=== PATIENT | male | born 1980 | race Hispanic/Latino ===

== ENCOUNTER 2018-06-14 11:49 | Emergency (ER) | payer BC, OTHER ==
[2018-06-14 14:06] LABS: Absolute Lymphocytes (CBC) 1.8 K/uL (0.7-4.9); Absolute Monocytes 1.1 K/uL (0.1-1.3); Absolute Neutrophil 7.4 K/uL (1.8-8.0); Basophils % 0.7 % (0-1.3); Eosinophils % 5.5 % (0-4.4); Hematocrit 47.2 % (39.6-49.0); Lymphocytes % 16.5 % (15.3-44.8); MCH 33.3 pg (27.0-35.0); MCV 96.9 fL (80-100); MPV 7.5 fL (7.6-11.3); Monocytes % 9.7 % (3.3-12.3); RBC Red Blood Cell Count 4.87 M/uL (4.33-5.43)
[2018-06-14 14:15] LABS: Protime INR 1.11
[2018-06-14 14:31] LABS: ALT/SGPT 196 U/L (12-78); AST/SGOT 100 U/L (15-37); Albumin 3.9 g/dL (3.4-5.0); Alkaline Phosphatase 58 U/L (45-117); BUN Blood Urea Nitrogen 10 mg/dL (7-18); Bicarbonate 29 mmol/L (21-32); Bilirubin Direct 0.3 mg/dL (0-0.2); Bilirubin Total 0.8 mg/dL (0.2-1.0); CKMB Creatine Kinase MB 2.2 ng/mL (0.3-3.6); Creatine Phosphokinase 107 U/L (39-308); Glucose Level 109 mg/dL (74-106); Magnesium 2.1 mg/dL (1.8-2.4); NT PRO-BNP 29 pg/mL (<125); Potassium 3.8 mmol/L (3.5-5.1); Protein, Total 8.1 g/dL (6.4-8.2); Sodium Level 139 mmol/L (136-145); Troponin (Emerg Dept Use Only) < 0.02 ng/mL (0.0-0.045)
--- NOTE | 2018-06-14 15:03 | RAD REPORT ---
EXAM DESCRIPTION: Florentino Single View06/14/2018 2:51 pm CLINICAL HISTORY: Chest pain COMPARISON: 2009 FINDINGS: The lungs appear clear of acute infiltrate. The heart is normal size IMPRESSION: No acute abnormalities displayed
--- NOTE | 2018-06-14 15:03 | RAD REPORT ---
EXAM DESCRIPTION: USExtrem Venous W Compress Bil06/14/2018 2:56 pm CLINICAL HISTORY: Bilateral leg swelling and pain COMPARISON: none FINDINGS: The common femoral, superficial femoral, popliteal and posterior tibial veins bilaterally are compressible and demonstrate augmentation. Doppler demonstrates good flow. IMPRESSION: No evidence of deep venous thrombosis involving either lower extremity.
--- NOTE | 2018-06-14 15:16 | ER ---
Nurse's Notes [facility] Name: Austyn Key Age: 38 yrs Sex: Male : 1980 Arrival Date: 06/14/2018 Time: 11:53 Bed 18 Private MD: To Huston R Diagnosis: Cellulitis of right lower leg Presentation: 06/14 11:56 Presenting complaint: Patient states: RLE pain and swelling for 3 days. Patient reports aj pain on palpation. Onset of symptoms was June 11, 2018. Risk Assessment: Do you want to hurt yourself or someone else? Patient reports no desire to harm self or others. Initial Sepsis Screen: Does the patient meet any 2 criteria? No. Patient's initial sepsis screen is negative. Does the patient have a suspected source of infection? No. Patient's initial sepsis screen is negative. Care prior to arrival: urgent care None. 11:56 Method Of Arrival: Ambulatory aj 11:56 Acuity: STEPHY 3 aj 13:48 Transition of care: patient was not received from another setting of care. em Triage Assessment: 11:57 General: Appears in no apparent distress. comfortable, Behavior is calm, cooperative, aj appropriate for age. Pain: Complains of pain in right merchant and anterior aspect of right ankle. Neuro: Level of Consciousness is awake, alert, obeys commands, Oriented to person, place, time, situation, Appropriate for age. Respiratory: Airway is patent Respiratory effort is even, unlabored, Respiratory pattern is regular, symmetrical. Derm: Skin is intact, is healthy with good turgor, Skin is pink, warm \T\ dry. normal. Musculoskeletal: Reports pain in right merchant and anterior aspect of right ankle. Historical: - Allergies: 11:57 No Known Allergies; aj - Home Meds: 11:57 Diovan Oral [Active]; aj - PMHx: 11:57 Hypertension; aj - PSHx: 11:57 Left Hip; aj - Immunization history:: Adult Immunizations up to date. - Social history:: Smoking status: Patient/guardian denies using tobacco, Patient uses alcohol, on a daily basis. - Ebola Screening: : Patient negative for fever greater than or equal to 101.5 degrees Fahrenheit, and additional compatible Ebola Virus Disease symptoms Patient denies exposure to infectious person Patient denies travel to an Ebola-affected area in the 21 days before illness onset No symptoms or risks identified at this time. Screenin:48 Abuse screen: Denies threats or abuse. Nutritional screening: No deficits noted. em Tuberculosis screening: No symptoms or risk factors identified. Fall Risk None identified. Assessment: 13:30 General: Appears in no apparent distress. comfortable, Behavior is calm, cooperative. em Pain: Complains of pain in right leg and right merchant Pain currently is 4 out of 10 on a pain scale. Neuro: Level of Consciousness is awake, alert, obeys commands, Oriented to person, place, time, situation. Cardiovascular: Capillary refill < 3 seconds Patient's skin is warm and dry. Cardiovascular: Denies chest pain, shortness of breath. Respiratory: Airway is patent Respiratory effort is even, unlabored, Respiratory pattern is regular, symmetrical. GI: Abdomen is round non-distended, Patient currently denies nausea, vomiting. : No signs and/or symptoms were reported regarding the genitourinary system. EENT: No signs and/or symptoms were reported regarding the EENT system. Derm: Skin is intact, Skin is pink, warm \T\ dry. Redness noted to right merchant, warm to the touch. Musculoskeletal: Range of motion: intact in all extremities. 13:30 Reassessment: I agree with assessment complete by DANNY Youssef aa5 15:10 Reassessment: Patient appears in no apparent distress at this time. Patient and/or em family updated on plan of care and expected duration. Pain level reassessed. Patient is alert, oriented x 3, equal unlabored respirations, skin warm/dry/pink. 15:55 Reassessment: Patient appears in no apparent distress at this time. Patient and/or em family updated on plan of care and expected duration. Pain level reassessed. Patient is alert, oriented x 3, equal unlabored respirations, skin warm/dry/pink. Vital Signs: 11:57 BP 121 / 94; Pulse 109; Resp 20; Temp 98.6; Pulse Ox 99% on R/A; Weight 106.59 kg; aj Height 5 ft. 7 in. (170.18 cm); 13:40 BP 149 / 99; Pulse 112; Resp 18; Pulse Ox 100% on R/A; Pain 4/10; em 15:11 BP 129 / 88; Pulse 101; Resp 16; Pulse Ox 99% on R/A; Pain 3/10; em 15:56 BP 116 / 89; Pulse 87; Resp 16; Pulse Ox 99% on R/A; em 11:57 Body Mass Index 36.81 (106.59 kg, 170.18 cm) ED Course: 11:53 Patient arrived in ED. mr 11:54 To Huston MD is Private Physician. mr 11:56 Triage completed. aj 11:57 Arm band placed on left wrist. Patient placed in waiting room, in a wheelchair, Patient aj notified of wait time. 13:07 Thomas Cherry PA is PHCP. [facility] 13:07 Drew Sanford MD is Attending Physician. [facility] 13:17 Claudy Sousa LVN is Primary Nurse. em 13:48 Patient has correct armband on for positive identification. Placed in gown. Bed in low em position. Call light in reach. Adult w/ patient. 13:48 EKG done, by ED staff, reviewed by Drew Sanford MD. em 13:48 No provider procedures requiring assistance completed. em 13:55 Initial lab(s) drawn, by ok, sent to lab. Urine collected: clean catch specimen, clear. em Inserted saline lock: 20 gauge in right antecubital area, using aseptic technique. Blood collected. 14:50 XRAY Chest (1 view) In Process Unspecified. EDMS 14:53 Ultrasound completed. Patient tolerated well. sg3 14:57 US Extremity Venous W Compression Shad In Process Unspecified. EDMS 15:14 To Huston MD is Referral Physician. jmm 15:55 IV discontinued, intact, bleeding controlled, No redness/swelling at site. Pressure em dressing applied. Administered Medications: No medications were administered Outcome: 15:15 Discharge ordered by . jmm 15:55 Discharged to home ambulatory. em 15:55 Condition: good 15:55 Discharge instructions given to patient, Instructed on discharge instructions, follow up and referral plans. medication usage, Demonstrated understanding of instructions, follow-up care, medications, Prescriptions given X 1. 15:57 Patient left the ED. em Signatures: Dispatcher [employer] EDMS Silvina Meyers RN RN Thomas Bone PA PA Nara Stokes mr Claudy Sousa LVN LVN em Adore Medina RN RN aa5 Saadia Granado sg3 Corrections: (The following items were deleted from the chart) 17:04 13:30 Derm: Skin is intact, Skin is pink, warm \T\ dry. eddie aa5
--- NOTE | 2018-06-14 15:16 | EDPHYS ---
Physician Documentation [facility] Name: Austyn Key Age: 38 yrs Sex: Male : 1980 Arrival Date: 06/14/2018 Time: 11:53 Bed 18 Private MD: To Huston R ED Physician Drew Sanford HPI: 06/14 13:36 This 38 yrs old Male presents to ER via Ambulatory with complaints of Leg jmm Pain, Leg Swelling. 13:36 The patient presents with pain, that is acute, swelling. The complaints affect the jmm lateral aspect of right calf, right calf, medial aspect of right calf and right merchant. Onset: The symptoms/episode began/occurred gradually, 3 day(s) ago. Modifying factors: The symptoms are alleviated by nothing. the symptoms are aggravated by nothing. Associated signs and symptoms: Pertinent negatives fever, SOB. This is a 38 year old male with a history of HTN that presents to the ED with pain and swelling to the right lower leg. Patient denies shortness of breath or chest pain. Patient denies fever. . Historical: - Allergies: 11:57 No Known Allergies; aj - Home Meds: 11:57 Diovan Oral [Active]; aj - PMHx: 11:57 Hypertension; aj - PSHx: 11:57 Left Hip; aj - Immunization history:: Adult Immunizations up to date. - Social history:: Smoking status: Patient/guardian denies using tobacco, Patient uses alcohol, on a daily basis. - Ebola Screening: : Patient negative for fever greater than or equal to 101.5 degrees Fahrenheit, and additional compatible Ebola Virus Disease symptoms Patient denies exposure to infectious person Patient denies travel to an Ebola-affected area in the 21 days before illness onset No symptoms or risks identified at this time. ROS: 13:36 Constitutional: Negative for fever, chills, and weight loss, Cardiovascular: Negative jmm for chest pain, palpitations, and edema, Respiratory: Negative for shortness of breath, cough, wheezing, and pleuritic chest pain, Abdomen/GI: Negative for abdominal pain, nausea, vomiting, diarrhea, and constipation. 13:36 MS/extremity: Positive for pain, swelling. 13:36 All other systems are negative. Exam: 13:36 Head/Face: atraumatic. Chest/axilla: Normal chest wall appearance and motion. [facility] Cardiovascular: Regular rate and rhythm. No edema appreciated Respiratory: Normal respirations, no respiratory distress appreciated Abdomen/GI: Non distended, soft 13:36 Constitutional: The patient appears in no acute distress, alert, awake. 13:36 Musculoskeletal/extremity: swelling with increased warmth noted to the right lower leg, compartments are soft. 13:36 Neuro: Orientation: is normal, Mentation: is normal, Memory: is normal. 13:36 Psych: Behavior/mood is pleasant, cooperative. Vital Signs: 11:57 BP 121 / 94; Pulse 109; Resp 20; Temp 98.6; Pulse Ox 99% on R/A; Weight 106.59 kg; aj Height 5 ft. 7 in. (170.18 cm); 13:40 BP 149 / 99; Pulse 112; Resp 18; Pulse Ox 100% on R/A; Pain 4/10; em 15:11 BP 129 / 88; Pulse 101; Resp 16; Pulse Ox 99% on R/A; Pain 3/10; em 15:56 BP 116 / 89; Pulse 87; Resp 16; Pulse Ox 99% on R/A; em 11:57 Body Mass Index 36.81 (106.59 kg, 170.18 cm) aj MDM: 13:36 Patient medically screened. [facility] 14:13 Data interpreted: Pulse oximetry: on room air is 99 %. Interpretation: normal. [facility] 15:08 Data reviewed: vital signs, nurses notes, lab test result(s), EKG, radiologic studies, [facility] ultrasound. Counseling: I had a detailed discussion with the patient and/or guardian regarding: the historical points, exam findings, and any diagnostic results supporting the discharge/admit diagnosis, radiology results, the need for outpatient follow up, to return to the emergency department if symptoms worsen or persist or if there are any questions or concerns that arise at home. ED course: Due to pain and swelling, patient will be treated for cellulitis of the right leg. Patient given infection return precautions. Patient understood and agrees with the plan of care. . 06/14 13:37 Order name: Basic Metabolic Panel; Complete Time: 14:49 [facility] 06/14 13:37 Order name: CBC with Diff; Complete Time: 14:49 [facility] 06/14 13:37 Order name: Ckmb; Complete Time: 14:49 [facility] 06/14 13:37 Order name: CPK; Complete Time: 14:49 [facility] 06/14 13:37 Order name: LFT's; Complete Time: 14:49 [facility] 06/14 13:37 Order name: Magnesium; Complete Time: 14:49 [facility] 06/14 13:37 Order name: NT PRO-BNP; Complete Time: 14:49 [facility] 06/14 13:37 Order name: PT-INR; Complete Time: 14:49 [facility] 06/14 13:37 Order name: Ptt, Activated; Complete Time: 14:49 [facility] 06/14 13:37 Order name: Troponin (emerg Dept Use Only); Complete Time: 14:50 [facility] 06/14 13:37 Order name: XRAY Chest (1 view); Complete Time: 15:08 [facility] 06/14 13:37 Order name: EKG; Complete Time: 13:38 [facility] 06/14 13:37 Order name: US Extremity Venous W Compression Shad; Complete Time: 15:08 [facility] 06/14 14:12 Order name: Urine Dipstick--Ancillary (enter results); Complete Time: 22:03 06/14 13:37 Order name: Cardiac monitoring; Complete Time: 13:47 [facility] 06/14 13:37 Order name: EKG - Nurse/Tech; Complete Time: 13:47 [facility] 06/14 13:37 Order name: IV Saline Lock; Complete Time: 13:47 [facility] 06/14 13:37 Order name: Labs collected and sent; Complete Time: 13:48 [facility] 06/14 13:37 Order name: O2 Per Protocol; Complete Time: 13:48 [facility] 06/14 13:37 Order name: O2 Sat Monitoring; Complete Time: 13:47 [facility] 06/14 13:37 Order name: Urine Dipstick-Ancillary (obtain specimen); Complete Time: 14:15 [facility] Administered Medications: No medications were administered Disposition: 06/14/18 15:15 Discharged to Home. Impression: Cellulitis of right lower leg. - Condition is Stable. - Discharge Instructions: Cellulitis, Adult. - Prescriptions for Bactrim DS 800- 160 mg Oral Tablet - take 1 tablet by ORAL route every 12 hours for 10 days; 20 tablet. - Medication Reconciliation Form, Thank You Letter, Antibiotic Education, Prescription Opioid Use form. - Follow up: To Huston MD; When: 1 - 2 days; Reason: Recheck today's complaints, Continuance of care, Re-evaluation by your physician. Addendum: 06/16/2018 08:07 Co-signature as Attending Physician, Drew Sanford MD I agree with the assessment and w a plan of care. Signatures: Dispatcher [employer] Silvina Ricardo, Thomas Gustafson RN, PA PA albam Claudy Sousa, DAMPER WORKER DAMPER WORKER em Drew Sanford MD MD ks Corrections: (The following items were deleted from the chart) 06/14 15:57 15:15 06/14/2018 15:15 Discharged to Home. Impression: Cellulitis of right lower leg. em Condition is Stable. Forms are Medication Reconciliation Form, Thank You Letter, Antibiotic Education, Prescription Opioid Use. Follow up: To Huston; When: 1 - 2 days; Reason: Recheck today's complaints, Continuance of care, Re-evaluation by your physician. pat
[2018-06-14 15:57] LABS: Urine Blood 1+ (NEG); Urine Glucose NEGATIVE (NEG); Urine Protein NEGATIVE (NEG)
--- NOTE | 2018-06-16 06:56 | EKG ---
Test Date: 2018-06-14 Test Time: 13:45:19 [employer] Deployment Lead: MATTI MEASUREMENT RESULTS: Intervals: Rate: 106 NH: 160 QRSD: 98 QT: 350 QTc: 464 [place]: P: 28 NH: 160 QRS: 66 T: 28 INTERPRETIVE STATEMENTS: Sinus tachycardia Otherwise normal ECG Compared to ECG 04/05/2010 10:04:47 Sinus rhythm no longer present Electronically Signed On 06-16-18 06:51:44 CDT by Rell Alves
== END 2018-06-14 15:57 | disposition home or self-care (01) ==
LOC: ER 11:49
DX: L03.115 Cellulitis of right lower limb (principal); I10 Essential (primary) hypertension
CPT/HCPCS: 36415; 71045; 80048; 80076; 81003; 82550; 82553; 83735; 83880; 84484; 85025; 85610; 85730; 93005; 93970; 99284